=== PATIENT | male | born 1950 | race Caucasian/White ===

== ENCOUNTER 2017-02-23 11:00 | Inpatient (IN) | payer MEDICARE ==
[~2017-02-23] VITALS: Ht 175.3 cm; Wt 106.6 kg
--- NOTE | 2017-02-23 11:36 | NUR ---
RADIOLOGY AT BEDSIDE FOR R FOOT XRAY.
--- NOTE | 2017-02-23 13:01 | NUR ---
DR MORENO PAGED AT [phone] CHAVEZ
--- NOTE | 2017-02-23 13:03 | NUR ---
DR MORENO OR THE ON-CALL WON'T BE AVAILABLE FOR A WEEKI PER SYED,OFFICE STAFF, DR CHAVEZ AWARE
[2017-02-23 13:11] LABS: BASOPHILS # (AUTO) 0.1 /CMM (0.0-0.2); BASOPHILS % (AUTO) 0.5 % (0.0-2.0); EOSINOPHILS # (AUTO) 0.2 /CMM (0.0-0.7); EOSINOPHILS % (AUTO) 1.5 % (0.0-6.0); HEMATOCRIT 44 % (39-51); HEMOGLOBIN 14.8 g/dL (13.5-17.5); LYMPHOCYTES # (AUTO) 1.6 /CMM (0.8-4.8); LYMPHOCYTES % (AUTO) 12.7 % (20.0-44.0); MEAN CORPUSCULAR HEMOGLOBIN 30 PG (26.0-33.0); MEAN CORPUSCULAR HGB CONC 34 g/dl (31.0-36.0); MEAN CORPUSCULAR VOLUME 88 fL (80-96); MONOCYTES # (AUTO) 1.5 /CMM (0.1-1.30); MONOCYTES % (AUTO) 11.6 % (2.0-12.0); NEUTROPHILS # (AUTO) 9.1 /CMM (1.8-8.9); NEUTROPHILS % (AUTO) 73.7 % (43.0-81.0); PLATELET COUNT (AUTO) 268 /CMM (150-450); RDW COEFFICIENT OF VARIATION 14.3 (11.5-15.0); WHITE BLOOD COUNT (AUTO) 12.5 K/uL (4.3-11.0)
[2017-02-23 13:18] LABS: CALCIUM, SERUM 9.5 mg/dL (8.5-10.1); CREATININE 1.5 mg/dL (0.6-1.3)
[2017-02-23] MEDS ORDERED: SIMV80TA5 PO (13:47)
[2017-02-23] MEDS ORDERED: NITR0.4T SL (13:47)
[2017-02-23] MEDS ORDERED: FLUO40CA49 PO (13:47)
[2017-02-23] MEDS ORDERED: CARV25TA2 PO (13:47)
[2017-02-23] MEDS ORDERED: FENO145T20 PO (13:47)
[2017-02-23] MEDS ORDERED: ALPR0.255 PO (13:47)
[2017-02-23] MEDS ORDERED: ALLO300T2 PO (13:47)
[2017-02-23] MEDS ORDERED: ZOLP10TA6 PO (13:47)
[2017-02-23] MEDS ORDERED: BENA40TA2 PO (13:47)
[2017-02-23] MEDS ORDERED: PREG150C PO (13:47)
[2017-02-23] MEDS ORDERED: CELE200C PO (13:47)
[2017-02-23] MEDS ORDERED: LEVO25TA7 PO (13:47)
[2017-02-23] MEDS ORDERED: ISOS120T9 PO (13:47)
[2017-02-23] MEDS ORDERED: INSU300I SQ (13:48)
--- NOTE | 2017-02-23 14:02 | NUR ---
REPORT GIVEN TO SHELLY WHITTEN FOR HARDY MS 320-2
--- NOTE | 2017-02-23 14:23 | NUR ---
MS LUSTER REPAIRER NOTES RECEIVED PT FROM ER IN STABLE CONDITION. PT IS A/O X4. NO SOB OR SIGNS OF DISTRESS NOTED. BREATHING IS EVEN AND UNLABORED. PT. DENIES ANY PAIN AT THIS TIME BUT STATES THAT HIS RIGHT LEG HURTS WHEN HE TRIES TO WALK ON IT. EDEMA NOTED ON RIGHT LEG. PT. WAS ORIENTED TO THE ROOM, BELONGINGS WERE CHECKED AND SIGNED BY DIANDRA. BED IN LOW LOCKED POSITION, SIDE RAILS UP X2, CALL LIGHT WITHIN REACH. WILL AWAIT FOR FURTHER ORDERS FROM THE MD AND BEGIN ADMISSION PROCESS
[2017-02-23] MEDS ORDERED: MORPHINE SULFATE INJ 2 MG/ML DISP.SYRIN IV PRN (14:30)
[2017-02-23] MEDS ORDERED: Z GUARD REMEDY 2 OZ OINT TP PRN (14:30)
[2017-02-23] MEDS ORDERED: DEXTROSE 50%-WATER 50 ML DISP.SYRIN IV PRN (14:30)
[2017-02-23] MEDS ORDERED: MAG HYDROX/AL HYDROX/SIMETH 30 ML UDC PO PRN (14:30)
[2017-02-23] MEDS ORDERED: ZOLPIDEM TARTRATE 10 MG TABLET PO PRN (14:30)
[2017-02-23] MEDS ORDERED: ONDANSETRON HCL/PF 4 MG/2 ML VIAL IVP PRN (14:30)
[2017-02-23] MEDS ORDERED: ENOXAPARIN SODIUM 40 MG/0.4 ML DISP.SYRIN SQ SCH (14:30)
[2017-02-23] MEDS ORDERED: ZOLPIDEM TARTRATE 5 MG TABLET PO PRN (14:30)
[2017-02-23] MEDS ORDERED: ACETAMINOPHEN 325 MG TABLET PO PRN (14:30)
[2017-02-23] MEDS ORDERED: HYDROCODONE/APAP 5/325MG 1 EACH TABLET PO PRN (14:30)
[2017-02-23] MEDS ORDERED: *INSULIN REGULAR(HUMULIN R)HUM 100 UNIT/ML VIAL SQ PRN (14:30)
[2017-02-23] MEDS ORDERED: INSULIN REGULAR, HUMAN 100 UNIT/ML 3 ML VIAL SQ PRN (14:30)
[2017-02-23] MEDS ORDERED: MAGNESIUM HYDROXIDE 30 ML UDC PO PRN (14:30)
[2017-02-23] MEDS ORDERED: ALPRAZOLAM 0.25 MG TABLET PO PRN (14:30)
[2017-02-23] MEDS ORDERED: HYDROCODONE/APAP 10/325MG 1 EA TABLET PO PRN (14:30)
[2017-02-23] MEDS ORDERED: NITROGLYCERIN 0.4 MG/TAB BOTTLE SL PRN (14:30)
[2017-02-23] MEDS: PREGABALIN 25 MG CAPSULE PO SCH ×2 (15:44→17:00)
[2017-02-23] MEDS: CELECOXIB 100 MG CAPSULE PO SCH (15:45)
[2017-02-23 16:00] VITALS: BP 118/56
[2017-02-23 16:50] VITALS: BP 143/77
[2017-02-23] MEDS: BLOOD SUGAR DIAGNOSTIC 1 EACH STRIP VI SCH ×2 (17:20→21:35)
--- NOTE | 2017-02-23 18:51 | NUR ---
MS RN CLOSING NOTES PT REMAINS IN STABLE CONDITION. ALL NEEDS WERE DURING SHIFT AND ORDERS CARRIED OUT ACCORDINGLY. NO CHANGES IN CONDITION SINCE ADMISSION. WILL ENDORSE TO NIGHTSHIFT NURSE FOR HARDY
--- NOTE | 2017-02-23 19:25 | NUR ---
MS RN NOTES RECEIVED PT IN BED, AWAKE, A/O X 4. VERBALLY RESPONSIVE. STABLE AT THIS TIME. NO DISTRESS, NO SOB. IV SITE ON RIGHT HAND INTACT AND PATENT. NO INFILTRATION NOTED. DENIES ANY PAIN OR DISCOMFORT AT THIS TIME. NO S/S OF HYPO/ HYPERGLYCEMIA. ALL NEEDS ATTENDED. BED ON LOWEST LEVEL. CALL LIGHT WITHIN REACH. WILL CONT TO MONITOR.
[2017-02-23 20:00] VITALS: BP_SYST 127; BP_SYST 63; BP_DIAS 63
[2017-02-23] MEDS: CARVEDILOL 12.5 MG TABLET PO SCH (21:42)
[2017-02-23] MEDS ORDERED: SIMVASTATIN 40 MG TABLET PO SCH (22:00)
[2017-02-24] MEDS: BLOOD SUGAR DIAGNOSTIC 1 EACH STRIP VI SCH (06:19)
[2017-02-24 06:45] LABS: BASOPHILS % (AUTO) 0.3 % (0.0-2.0); EOSINOPHILS # (AUTO) 0.3 /CMM (0.0-0.7); EOSINOPHILS % (AUTO) 3.1 % (0.0-6.0); HEMATOCRIT 43 % (39-51); HEMOGLOBIN 14.6 g/dL (13.5-17.5); LYMPHOCYTES # (AUTO) 1.8 /CMM (0.8-4.8); LYMPHOCYTES % (AUTO) 17.2 % (20.0-44.0); MEAN CORPUSCULAR HEMOGLOBIN 30 PG (26.0-33.0); MEAN CORPUSCULAR HGB CONC 34 g/dl (31.0-36.0); MEAN CORPUSCULAR VOLUME 88 fL (80-96); MONOCYTES # (AUTO) 1.8 /CMM (0.1-1.30); MONOCYTES % (AUTO) 16.8 % (2.0-12.0); NEUTROPHILS # (AUTO) 6.6 /CMM (1.8-8.9); NEUTROPHILS % (AUTO) 62.6 % (43.0-81.0); PLATELET COUNT (AUTO) 252 /CMM (150-450); RDW COEFFICIENT OF VARIATION 15.8 (11.5-15.0); RED BLOOD CELL COUNT(AUTO) 4.91 MIL/uL (4.5-6.0); WHITE BLOOD COUNT (AUTO) 10.6 K/uL (4.3-11.0)
--- NOTE | 2017-02-24 06:45 | NUR ---
MS RN NOTES PT IN BED, AWAKE, A/O X 4. VERBALLY RESPONSIVE, STABLE. WATCHING TV AT THIS TIME. NO DISTRESS, NO SOB. IV SITE ON RIGHT HAND INTACT AND PATENT. NO INFILTRATION NOTED. DENIES ANY PAIN OR DISCOMFORT AT THIS TIME. NO S/S OF HYPO/ HYPERGLYCEMIA. PT IS AMBULATORY WITH ASSIST AND WITH CANE. ALL NEEDS ATTENDED. BED ON LOWEST LEVEL. SAFETY PRECAUTIONS OBSERVED. CALL LIGHT WITHIN REACH. WILL CONT ENDORSE TO NEXT SHIFT FOR HARDY.
[2017-02-24 07:02] LABS: CALCIUM, SERUM 9.5 mg/dL (8.5-10.1); CREATININE 1.6 mg/dL (0.6-1.3); PHOSPHORUS 2.7 mg/dL (2.5-4.9); POTASSIUM 4.1 mmol/L (3.5-5.1)
[2017-02-24] MEDS ORDERED: LEVOTHYROXINE SODIUM 25 MCG TABLET PO SCH (07:30)
[2017-02-24] MEDS ORDERED: PANTOPRAZOLE 40 MG TABLET.DR PO SCH (07:30)
--- NOTE | 2017-02-24 07:31 | NUR ---
AM RN NOTE Received patient sleeping comfortably in his bed no acute distress noted. No SOB noted resp even and non-labored. IV site noted pulled out, will re-insert new site. Bed in low locked position. Call light with in reach.
[2017-02-24 08:00] VITALS: BP 127/62
[2017-02-24 08:08] LABS: EOSINOPHILS % (MANUAL) 2 % (0-4); LYMPHOCYTES % (MANUAL) 17 % (16-48); MONOCYTES % (MANUAL) 21 % (0-11.0); NEUTROPHILS % (MANUAL) 60 (42-76)
[2017-02-24] MEDS: CELECOXIB 100 MG CAPSULE PO SCH (08:48)
[2017-02-24] MEDS: CARVEDILOL 12.5 MG TABLET PO SCH (08:50)
--- NOTE | 2017-02-24 08:55 | NUR ---
AM RN NOTE Spoke with Sarai (Pharmacist) to deliver Imdur for patient.
[2017-02-24] MEDS: PREGABALIN 25 MG CAPSULE PO SCH (08:57)
[2017-02-24] MEDS ORDERED: ALLOPURINOL 100 MG TABLET PO SCH (09:00)
[2017-02-24] MEDS ORDERED: FENOFIBRATE NANOCRYS (145 MG) 145 MG TABLET PO SCH (09:00)
[2017-02-24] MEDS ORDERED: BENAZEPRIL HCL 20 MG TABLET PO SCH (09:00)
[2017-02-24] MEDS ORDERED: ISOSORBIDE MONONITRATE 60 MG TAB.SR.24H PO SCH (09:00)
[2017-02-24] MEDS ORDERED: INSULIN DETEMIR 100 UNIT/ML CARTRIDGE SQ SCH (09:00)
[2017-02-24] MEDS ORDERED: FLUOXETINE HCL 20 MG CAPSULE PO SCH (09:00)
[2017-02-24] MEDS ORDERED: ISOSORBIDE MONONITRATE (30MG) 30 MG TAB.SR.24H PO SCH (09:54)
--- NOTE | 2017-02-24 10:30 | NUR ---
AM RN NOTE RN came back from Lab and Charge nurse notified that patient slid from the bed. Pt awake, A/O X4 verbally responsive. Denies any pain or discomfort at this time. Pt stated "I am ok nothing happened to me.". Pt refused RN to check his body. V/S BP124/70 P68 T97.4 P70 R20 O2 sat 96% at RA. Will continue to monitor.
--- NOTE | 2017-02-24 10:40 | NUR ---
AM RN NOTE Patient A/O X4, refused to notify his family regarding incident (Slid from the bed). Dr. Multani made aware with NNO.
[2017-02-24 10:43] VITALS: BP 124/70
--- NOTE | 2017-02-24 11:20 | NUR ---
AM RN NOTE Patient awake, A/O X4 verbally responsive. Friend at bedside. Patient wants to leave AMA (Against medical advice). Charge nurse spoke with patient, both CN and RN explained the risks but patient still insisting to leave AMA. Patient refused to sign AMA form and doesn't want to take any instructions home. Pt evaled by Physical therapist and noted with very unsteady gait. Pt doesn't want to comply with any instructions. Dr. Multani made aware. HL and ID band removed. Patient left in a W/C with all his belongings as accompanied by 1 CLOTH STRETCHER and friend to [facility].
== END 2017-02-24 11:20 | disposition left against medical advice (07) | DRG 551 ==
LOC: ER 11:01 → MED 13:52
PROVIDERS: ADMIT Internal Medicine; ATTEND Internal Medicine
DX: M48.00 Spinal stenosis, site unspecified (principal); N17.0 Acute kidney failure with tubular necrosis; I10 Essential (primary) hypertension; M79.671 Pain in right foot; S90.31XA Contusion of right foot, initial encounter; Y92.009 Unspecified place in unspecified non-institutional (private) residence as the place of occurrence of the external cause; Y93.9 Activity, unspecified; W19.XXXA Unspecified fall, initial encounter; F32.9 Major depressive disorder, single episode, unspecified; E03.9 Hypothyroidism, unspecified; E11.9 Type 2 diabetes mellitus without complications; E66.9 Obesity, unspecified; E78.5 Hyperlipidemia, unspecified; F41.9 Anxiety disorder, unspecified; I25.10 Atherosclerotic heart disease of native coronary artery without angina pectoris; M10.9 Gout, unspecified; Z95.1 Presence of aortocoronary bypass graft; Z68.34 Body mass index [BMI] 34.0-34.9, adult
CPT/HCPCS: 36415; 73630-TC; 80048-TC; 82962-TC; 83735-TC; 84100-TC; 85025-TC; 87081-TC; J1650; J1815; Z7610

== ENCOUNTER 2017-03-09 01:39 | Inpatient (IN) | payer MEDICARE ==
[~2017-03-09] VITALS: Ht 175.3 cm; Wt 103.4 kg
[~2017-03-09 01:39] MED LIST: ALLO300T2 PO; ALPR0.255 PO; BENA40TA2 PO; CARV25TA2 PO; CELE200C PO; FENO145T20 PO; FLUO40CA49 PO; INSU300I SQ; ISOS120T9 PO; LEVO25TA7 PO; NITR0.4T SL; PREG150C PO; SIMV80TA5 PO; ZOLP10TA6 PO
[2017-03-09] MEDS ORDERED: LIDOCAINE 2% JEL UROJET 10 ML MM ONE (02:37)
[2017-03-09 03:06] LABS: APPEARANCE,URINE CLEAR (CLEAR); BILIRUBIN,URINE NEGATIVE (NEGATIVE); BLOOD, URINE NEGATIVE Ery/uL (NEGATIVE); COLOR,URINE YELLOW (YELLOW); KETONES,URINE NEGATIVE (NEGATIVE); LEUKOCYTE ESTERASE ,URINE NEGATIVE (NEGATIVE); NITRITE, URINE NEGATIVE (NEGATIVE); PH,URINE 6.5 (5.0-8.0); PROTEIN,URINE TRACE mg/dl (NEGATIVE); UGLUCOSE NEGATIVE (NEGATIVE)
[2017-03-09 03:07] LABS: ALBUMIN 2.8 g/dL (3.4-5.0); BILIRUBIN,DIRECT 0.1 mg/dL (0.0-0.2); BILIRUBIN,TOTAL 0.6 mg/dL (0.2-1.0); CALCIUM, SERUM 9.5 mg/dL (8.5-10.1); CREATININE 1.3 mg/dL (0.6-1.3); POTASSIUM 4.2 mmol/L (3.5-5.1); TOTAL PROTEIN, SERUM 7.7 g/dL (6.4-8.2); TROPONIN I 0.299 ng/mL (0.00-0.056)
[2017-03-09] MEDS ORDERED: IOHEXOL-300 100 ML VIAL IV ONE (03:27)
[2017-03-09] MEDS ORDERED: IV NS 0.9% 250 ML IV ONE (03:28)
[2017-03-09] MEDS ORDERED: ONDANSETRON HCL/PF 4 MG/2 ML VIAL ONE (04:30)
[2017-03-09] MEDS ORDERED: MORPHINE SULFATE INJ 4 MG/ML DISP.SYRIN ONE ×2 (04:31→04:34)
--- NOTE | 2017-03-09 05:58 | NUR ---
CALLED RESIDENTIAL DESIGNER FOR TELE BED.
--- NOTE | 2017-03-09 06:03 | NUR ---
PT ASLEEP IN BED W/ RESP EVEN & UNLABORED, EASILY AROUSABLE W/ NAD NOTED. ON CONTINUOUS CARDIAC MONITORING.
[2017-03-09] MEDS ORDERED: ASPIRIN 325 MG TABLET ONE (06:19)
--- NOTE | 2017-03-09 06:22 | NUR ---
REPORT GIVEN TO SHELLY MARQUEZ FOR PT ADMISSION TO TELE RM 112-2. PT TRANSFERRED VIA ALS PROTOCOL TO TELE UNIT.
--- NOTE | 2017-03-09 06:25 | NUR ---
VSS, NAD NOTED. TRANSPORTED TO BED 112-2 WITH RN & EMT.
[2017-03-09] MEDS ORDERED: ASPIRIN 325 MG TABLET PO ONE (06:30)
[2017-03-09 06:39] LABS: BACTERIA,URINE None seen /HPF (None Seen); RBC,URINE NONE SEEN /HPF (0-2); SQUAMOUS EPITHELIAL CELL,UR Few /HPF (None Seen); WBC,URINE 0-2 /HPF (0-3)
[2017-03-09 07:44] LABS: BASOPHILS % (AUTO) 0.1 % (0.0-2.0); EOSINOPHILS # (AUTO) 0.3 /CMM (0.0-0.7); EOSINOPHILS % (AUTO) 2.2 % (0.0-6.0); HEMATOCRIT 34 % (39-51); HEMOGLOBIN 11.3 g/dL (13.5-17.5); LYMPHOCYTES # (AUTO) 1.6 /CMM (0.8-4.8); LYMPHOCYTES % (AUTO) 13.6 % (20.0-44.0); MEAN CORPUSCULAR HEMOGLOBIN 30 PG (26.0-33.0); MEAN CORPUSCULAR HGB CONC 33 g/dl (31.0-36.0); MEAN CORPUSCULAR VOLUME 89 fL (80-96); MONOCYTES # (AUTO) 1.4 /CMM (0.1-1.30); MONOCYTES % (AUTO) 11.6 % (2.0-12.0); NEUTROPHILS # (AUTO) 8.6 /CMM (1.8-8.9); NEUTROPHILS % (AUTO) 72.5 % (43.0-81.0); PLATELET COUNT (AUTO) 497 /CMM (150-450); RDW COEFFICIENT OF VARIATION 13.8 (11.5-15.0); RED BLOOD CELL COUNT(AUTO) 3.82 MIL/uL (4.5-6.0); WHITE BLOOD COUNT (AUTO) 11.9 K/uL (4.3-11.0)
[2017-03-09 08:00] VITALS: BP_SYST 113; BP_SYST 116; BP_DIAS 58; BP_DIAS 71
--- NOTE | 2017-03-09 08:00 | NUR ---
TELE1/RN AM SHIFT INITIAL NOTES RECEIVED PT AWAKE SITTING IN BED, PT A/O X 4, DENIES ANY SYMPTOMS AT THIS TIME. ON 2L O2 VIA N/C SATURATING @ 97%. NO ACUTE CHANGE OF CONDITION NOTED. ON TELE MONITORING WITH SINUS RHYTHM WITH BBB, HR 90. IV SITE FLUSHED, PATENT WITH NO S/S OF INFECTION. PT IS COMFORTABLE AT THIS TIME. SCHEDULED AM MEDS TO BE GIVEN. ADMITTING PROTOCOLS TO BE PROCESSED. CL WITHIN REACHED AND SAFETY MAINTAINED. ON GOING MONITORING. Addendum: 03/09/17 at 1116 by FERNANDA TRUJILLO RN ADDENDUM: PT'S SURGICAL SITE IN LOWER BACK CLEAN, DRY, HEALING WELL
[2017-03-09 08:10] LABS: CALCIUM, SERUM 9.2 mg/dL (8.5-10.1); CREATININE 1.1 mg/dL (0.6-1.3); PHOSPHORUS 3.4 mg/dL (2.5-4.9); POTASSIUM 3.9 mmol/L (3.5-5.1)
[2017-03-09] MEDS ORDERED: MORPHINE SULFATE INJ 2 MG/ML DISP.SYRIN IV PRN (08:30)
[2017-03-09] MEDS ORDERED: ENOXAPARIN SODIUM 40 MG/0.4 ML DISP.SYRIN SQ SCH (09:00)
[2017-03-09] MEDS ORDERED: CELECOXIB 100 MG CAPSULE PO SCH (09:00)
[2017-03-09 09:05] LABS: HEMATOCRIT 36 % (39-51); HEMOGLOBIN 11.8 g/dL (13.5-17.5); MEAN CORPUSCULAR HEMOGLOBIN 29 PG (26.0-33.0); MEAN CORPUSCULAR HGB CONC 33 g/dl (31.0-36.0); MEAN CORPUSCULAR VOLUME 89 fL (80-96); RDW COEFFICIENT OF VARIATION 13.9 (11.5-15.0); RED BLOOD CELL COUNT(AUTO) 4.02 MIL/uL (4.5-6.0); WHITE BLOOD COUNT (AUTO) 11.6 K/uL (4.3-11.0)
[2017-03-09 09:06] LABS: BASOPHILS % (AUTO) 0.5 % (0.0-2.0); EOSINOPHILS % (AUTO) 3.4 % (0.0-6.0); LYMPHOCYTES % (AUTO) 13.6 % (20.0-44.0); MONOCYTES % (AUTO) 11.3 % (2.0-12.0); NEUTROPHILS % (AUTO) 71.2 % (43.0-81.0); PLATELET COUNT (AUTO) 500 /CMM (150-450)
[2017-03-09] MEDS ORDERED: ASPI81TA2 PO (09:22)
[2017-03-09] MEDS ORDERED: HYDR-552 PO (09:22)
[2017-03-09] MEDS ORDERED: BLOO-668 IN (09:22)
[2017-03-09 09:26] LABS: INR 1.14 (0.87-1.13); PROTHROMBIN TIME 12.3 SECS (9.5-12.7)
[2017-03-09] MEDS: ASPIRIN 81 MG TAB.CHEW PO SCH (09:52)
--- NOTE | 2017-03-09 11:16 | NUR ---
TELE1/RN ROUNDS - DR. CHOE UPDATED PT'S CONDITION. PT SEEN & EXAMINED BY DR. CHOE. NO NEW ORDERS RECEIVED AT THIS TIME. Addendum: 03/09/17 at 1118 by FERNANDA TRUJILLO RN ADDENDUM: DR. CHOE HAS SPOKEN TO DR. VASQUEZ (WHO PERFORMED LOWER BACK).
[2017-03-09 12:00] VITALS: BP_SYST 147; BP_SYST 85; BP_DIAS 53; BP_DIAS 79
--- NOTE | 2017-03-09 13:21 | NUR ---
TEXTED DR. PAREDES FOR MRI APPROVAL.
--- NOTE | 2017-03-09 14:00 | NUR ---
PT REFUSED 1400 EKG.
--- NOTE | 2017-03-09 15:00 | NUR ---
TELE1/RN POSTPONE PER PT WANT TO PERFORM MRI TOMORROW INSTEAD.
[2017-03-09 16:00] VITALS: BP 125/79
[2017-03-09] MEDS ORDERED: NITROGLYCERIN 0.4 MG/TAB BOTTLE SL PRN (18:00)
[2017-03-09] MEDS ORDERED: ALPRAZOLAM 0.25 MG TABLET PO PRN (18:00)
--- NOTE | 2017-03-09 18:00 | NUR ---
TELE1/RN AFTERNOON ROUNDS NO CHANGE OF CONDITION. MONITORING.
[2017-03-09] MEDS: MORPHINE SULFATE INJ 2 MG/ML DISP.SYRIN IV PRN (18:40)
[2017-03-09] MEDS ORDERED: MAGNESIUM HYDROXIDE 30 ML UDC PO PRN (19:00)
--- NOTE | 2017-03-09 19:30 | NUR ---
INVENTORY AUDITOR INITIAL NOTES RECEIVED PATIENT AWAKE A/OX3 ABLE TO MAKE NEEDS KNOWN. PATIENT DENIES PAIN OR DISCOMFORT. RESPIRATIONS EVEN AND UNLABORED ON ROOM AIR. ON TELE MONITOR SR 91. SKIN WARM AND DRY TO TOUCH. WITH F/C IN PLACE, PATENT AND INTACT, DRAINING BY GRAVITY. NOTED SURGERY SITE ON BACK, CLEAN AND DRY, OPEN TO AIR. NO DRAINAGE NOTED. HOB ELEVATED. WITH BILATERAL DVT PUMPS IN PLACE, PATIENT REQUESTED TO HAVE RIGHT SIDE REMOVED, CAUSING HIM PAIN. SIDE RAILS UP AND LOCKED. BED KEPT AT LOWEST POSITION. CALL LIGHT KEPT WITHIN EASY REACH. WILL CONTINUE TO MONITOR.
--- NOTE | 2017-03-09 19:32 | NUR ---
TELE1/RN AM SHIFT END NOTES NO CHANGE OF CONDITION NOTED DURING THE SHIFT, ALL NEEDS MET. PT ENDORSED TO PM NURSE TO CONTINUE CARE. CL WITHIN REACHED AND SAFETY MAINTAINED.
[2017-03-09 20:00] VITALS: BP_SYST 125; BP_SYST 135; BP_DIAS 76; BP_DIAS 79
[2017-03-09] MEDS: ATORVASTATIN 40 MG TABLET PO SCH (21:26)
[2017-03-09] MEDS: PREGABALIN 25 MG CAPSULE PO SCH (21:27)
[2017-03-09] MEDS: CARVEDILOL 12.5 MG TABLET PO SCH (21:27)
[2017-03-09] MEDS ORDERED: CARVEDILOL 12.5 MG TABLET PO SCH (22:00)
[2017-03-09] MEDS ORDERED: SIMVASTATIN 40 MG TABLET PO SCH (22:00)
[2017-03-10] VITALS (9 sets, daily range): BP systolic 80–157; BP diastolic 47–78
--- NOTE | 2017-03-10 07:00 | NUR ---
RN NOTES RECEIVED PATIENT ON BED , A/Ox4, RESPIRATION EVEN AND UNLABORED , NO SOB NOTED SR ON TELE, F/C IN PLACE, PATENT AND INTACT, DRAINING TO GRAVITY. SURGICAL SITE TO BACK CDI, EXPERIMENTAL TECHNICIAN, HOB ELEVATED. SIDE RAILS UPx3, CALL LIGHT WITHIN EASY REACH , BED LOCKED AND IN LOWEST POSITION. WILL CONTINUE TO MONITOR PT CLOSELY AND NOTIFY MD FOR ANY SINGICANT CHANGES .
--- NOTE | 2017-03-10 07:09 | NUR ---
HEDDLE MACHINE OPERATOR CLOSING NOTES NO SIGNIFICANT CHANGES OVERNIGHT. PAIN MANAGED NEEDED. DENIES SOB, ON RA. SKIN WARM AND DRY TO TOUCH. SR ON TELE. F/C PATENT AND INTACT, DRAINING BY GRAVITY. KEPT CLEAN AND DRY. HOB ELEVATED. SIDE RAILS UP AND LOCKED. BED KEPT AT LOWEST POSITION. CALL LIGHT KEPT WITHIN EASY REACH. CONTINUITY OF CARE ENDORSED TO AM NURSE.
--- NOTE | 2017-03-10 07:25 | NUR ---
SISAL PICKER NOTES SPOKE WITH ENGLISH AS A SECOND LANGUAGE INSTRUCTOR SAHIL, PER SAHIL HE WILL SEND SOMEONE OVER TO DO MRI. OK FOR PATIENT TO EAT. AM NURSE MADE AWARE.
[2017-03-10] MEDS: LEVOTHYROXINE SODIUM 25 MCG TABLET PO SCH (08:36)
[2017-03-10] MEDS: CARVEDILOL 12.5 MG TABLET PO SCH ×2 (08:38→21:17)
[2017-03-10] MEDS: ASPIRIN 81 MG TAB.CHEW PO SCH (08:38)
[2017-03-10] MEDS: FLUOXETINE HCL 20 MG CAPSULE PO SCH (08:43)
[2017-03-10] MEDS: FENOFIBRATE NANOCRYS (145 MG) 145 MG TABLET PO SCH (08:43)
[2017-03-10] MEDS: CELECOXIB 100 MG CAPSULE PO SCH (08:43)
[2017-03-10] MEDS: BENAZEPRIL HCL 20 MG TABLET PO SCH (08:44)
[2017-03-10] MEDS: ALLOPURINOL 100 MG TABLET PO SCH (08:48)
[2017-03-10] MEDS: ISOSORBIDE MONONITRATE (30MG) 30 MG TAB.SR.24H PO SCH (08:48)
[2017-03-10] MEDS ORDERED: ASPIRIN 81 MG TAB.CHEW PO SCH (09:00)
[2017-03-10] MEDS ORDERED: TOUJEO SQ SCH (09:00)
--- NOTE | 2017-03-10 10:39 | NUR ---
RN NOTES REPORT GIVEN TO SAI FOR CONTINUITY OF CARE .
[2017-03-10] MEDS: PREGABALIN 25 MG CAPSULE PO SCH ×3 (10:40→17:00)
--- NOTE | 2017-03-10 10:40 | NUR ---
LYrica non administered, patient is at the rad. dept. for MRI
--- NOTE | 2017-03-10 10:40 | NUR ---
Received report from Maurice/SHELLY for continuity of care. Patient is at the Rad. dept for MRI.
[2017-03-10] MEDS: MORPHINE SULFATE INJ 2 MG/ML DISP.SYRIN IV PRN (11:45)
--- NOTE | 2017-03-10 11:59 | NUR ---
Received call from Dr. Collazo, ordered Stat EKG, CBC, BMP, ESR, CRP stat and NPO now per Dr. Penn. Patient to have surgery today. Dr. Penn will speak to the patient per Dr. Collazo.
[2017-03-10] MEDS ORDERED: GADOVERSETAMIDE 5 MMOL/10 ML VIAL ONE (12:26)
[2017-03-10 12:32] LABS: BASOPHILS # (AUTO) 0.1 /CMM (0.0-0.2); BASOPHILS % (AUTO) 0.7 % (0.0-2.0); EOSINOPHILS # (AUTO) 0.3 /CMM (0.0-0.7); EOSINOPHILS % (AUTO) 2.3 % (0.0-6.0); HEMATOCRIT 34 % (39-51); HEMOGLOBIN 11.3 g/dL (13.5-17.5); LYMPHOCYTES # (AUTO) 1.3 /CMM (0.8-4.8); LYMPHOCYTES % (AUTO) 10.8 % (20.0-44.0); MEAN CORPUSCULAR HEMOGLOBIN 30 PG (26.0-33.0); MEAN CORPUSCULAR HGB CONC 33 g/dl (31.0-36.0); MEAN CORPUSCULAR VOLUME 88 fL (80-96); MONOCYTES # (AUTO) 1.2 /CMM (0.1-1.30); NEUTROPHILS # (AUTO) 9.2 /CMM (1.8-8.9); NEUTROPHILS % (AUTO) 76.2 % (43.0-81.0); PLATELET COUNT (AUTO) 523 /CMM (150-450); RDW COEFFICIENT OF VARIATION 14.1 (11.5-15.0); RED BLOOD CELL COUNT(AUTO) 3.82 MIL/uL (4.5-6.0)
[2017-03-10 12:45] LABS: C-REACTIVE PROTEIN 4.4 mg/dL (0.0-0.9)
[2017-03-10 12:47] LABS: CALCIUM, SERUM 8.8 mg/dL (8.5-10.1); CREATININE 1.7 mg/dL (0.6-1.3); POTASSIUM 4.5 mmol/L (3.5-5.1)
--- NOTE | 2017-03-10 12:58 | NUR ---
Report given to Toby/SHELLY for continuity of care.
--- NOTE | 2017-03-10 12:59 | NUR ---
RN NOTES RECEIVED PT ON BED, STABLE , CONTINUE TO MONITOR.
--- NOTE | 2017-03-10 16:00 | NUR ---
RN NOTES BP=80/47 HR=87 , PT ZORAN ANY S/S OF HYPOTENSION , DR CHOE NOTIFIED , CONTINUE TO MONITOR PT .
--- NOTE | 2017-03-10 16:10 | NUR ---
RN NOTES REPORT GIVEN TO MONICA BRVAO AT [facility] .
--- NOTE | 2017-03-10 16:15 | NUR ---
RN NOTES ORDER RECEIVED FOR 2 L NS BOLUS PER DR CHOE ORDER . PT A/Ox3, NO DISTRES NOTED, ELEVATED BLE , HOB DOWN , CONTINUE TO MONITOR BP .
[2017-03-10] MEDS ORDERED: IV NS 0.9% 1,000 ML BAG IV PRN (16:30)
[2017-03-10] MEDS ORDERED: GLYCERIN ADULT 1 SUPP.RECT RC PRN (16:30)
--- NOTE | 2017-03-10 16:55 | NUR ---
RN NOTES 1000CC NS BOLUS GIVEN HM=467/66 HR =81, PT STABLE , NO DISTRESS NOTED, LIZET BRAVO AT [facility] NOTIFIED , EMT PERSONAL ON THE FLOOR TO TRANSFER PT TO [facility]
--- NOTE | 2017-03-10 17:00 | NUR ---
RN NOTES PT LEFT THE FLOOR TO [facility] IN STABLE CONDITION , ACCOMPANIED BY EMT PERSONAL ,
--- NOTE | 2017-03-10 17:40 | NUR ---
RN NOTES PT BACK TO ROOM 112-2 PER CASE MANAGEMENT , SA=794/62 HR =79 , T=98.6 , NO DISTRESS NOTED .
--- NOTE | 2017-03-10 18:24 | NUR ---
RN NOTES PT STABLE , ZORAN ANY DISTRESS , VSS STABLE ,WILL BE TRANSFER BACK TO [facility] IN AM PER CASE MANAGEMENT.
--- NOTE | 2017-03-10 19:00 | NUR ---
RN NOTES DR CHOE TALKED TO PT ON THE PHONE PT REFUSED TO GO TO [facility].
--- NOTE | 2017-03-10 19:15 | NUR ---
RN NOTES DR CHOE ON THE PHONE TALKING TO THE PT REGARDING TRANSFERRING TO [facility] , PT STATED WANTS TO TALK TO SURGEON AT [facility] BEFORE LEAVE [facility] .
--- NOTE | 2017-03-10 19:20 | NUR ---
RN NOTES DR DAIJA EWING TO PT ON THE PHONE AGAIN , PT STILL REFUSING TO GO TO [facility] ,
--- NOTE | 2017-03-10 19:30 | NUR ---
RN NOTES RECEIVED PT. AWAKE ON BED, A/OX3, PT STATED THAT HE JUST SPOKE TO DR. CHOE AND TOLD ME THAT HE'S NOT GOING TO [place] OR ANYWHERE TONIGHT OR EVEN TOMORROW, DENIES PAIN, SR ON TELE MONITOR HR-72, CALL LIGHT WITHIN REACH, SIDERAILS UPX2 CONTINUE TO MONITOR
--- NOTE | 2017-03-10 20:07 | NUR ---
RN NOTES UNDERWEAR HEMMER NERY CALLED AND INFORMED ME THAT DR. VASQUEZ, SURGEON FROM [facility] WILL CALL THE HOSPITAL AND WILL TALK TO THE PATIENT
--- NOTE | 2017-03-10 20:20 | NUR ---
RN NOTES DR. MENDIETA CAME AND TALKED TO THE PT AND WANTS THE PT. TO LEAVE [facility] BUT THERE'S NO AVAILABLLE BED IN [place]. HE DOESN'T EVEN KNOW WHICH FLOOR THE PT. IS GOING.. WILL CALL THE BLENDER / COOK
--- NOTE | 2017-03-10 20:30 | NUR ---
RN NOTES DAIRY BACTERIOLOGIST CHULA GABRIEL AND TALKED TO DR. MENDIETA THAT WE CAN'T TRANSFER THE PT. UNLESS WE HAVE BED AVAILABLE IN [facility]
--- NOTE | 2017-03-10 20:44 | NUR ---
RN NOTES DR. MENDIETA CAME AND GAVE AN ORDER TO PUT PT. ON NPO EXCEPT MEDS, ORDER NOTED AND CARRIED OUT
--- NOTE | 2017-03-10 21:00 | NUR ---
RN NOTES DR. MENDIETA TALKED TOT HE PT AGAIN AND INFORMED HIM THAT HE'S GOING TO BE TRANSFER TOMORROW MORNING INSTEAD TONIGHT
--- NOTE | 2017-03-10 21:10 | NUR ---
RN NOTES NERY SPRING TACKER ARRANGE EVERYTHING , AMBULANCE ( MED RESPONSE ) WAS CALLED [facility] FOR BED AVAILABILITY.
[2017-03-10] MEDS: ATORVASTATIN 40 MG TABLET PO SCH (21:17)
--- NOTE | 2017-03-10 21:30 | NUR ---
RN NOTES PT. REFUSED HIS IV LINE , EVEN EXPLAINED THAT HE'S GOING TO ANOTHER HOSPITAL IN THE MORNING
--- NOTE | 2017-03-10 21:37 | NUR ---
RN NOTES CALLED DR. BURGESS AND GOT AN ORDER FOR IV FLUID OF D5NS @ 75ML/HR, ORDER NOTED AND CARRIED OUT
[2017-03-10] MEDS ORDERED: IV D5/ 0.9% NACL 1,000 ML IV SCH (22:00)
[2017-03-11] VITALS: BP 112/41
[2017-03-11 00:01] VITALS: BP 112/41
[2017-03-11 04:00] VITALS: BP_SYST 121; BP_DIAS 60; BP_DIAS 62
--- NOTE | 2017-03-11 06:10 | NUR ---
RN NOTES PT IV LINE GOT INFILTRATED, CHARGE NURSE INSERTED A NEW LINE GAUGE 22
--- NOTE | 2017-03-11 06:20 | NUR ---
RN NOTES PT. REFUSED TO PUT BACK HER IV FLUID, REFUSED ACCU-CHECK, REFUSED DRESSING ON HIS SURGICAL SITE. PT STATED "IT'S NOT NECESSARY"
--- NOTE | 2017-03-11 06:45 | NUR ---
RN NOTES CALLED [facility] AND GAVE REPORT TO SHELLY GARCIA
--- NOTE | 2017-03-11 06:46 | NUR ---
RN NOTES PT IS AWAKE, DENIES PAIN, STILL REFUSING FOR DRESSING CHANGE, REFUSED MORNING CARE, PT STATED " HE'S GOING TO BE TRANSFER TO ANOTHER HOSPITAL ANYWAY, CALL LIGHT WITHIN REACH, SIDERAILS UPX2 PT. NEEDS ATTENDED
[2017-03-11] MEDS: MORPHINE SULFATE INJ 2 MG/ML DISP.SYRIN IV PRN (07:12)
--- NOTE | 2017-03-11 07:15 | NUR ---
RN NOTES COMPLAINED OF BACK SURGICAL SITE- MORPHINE 2MG IV GIVEN ORDERED, V/S STABLE
[2017-03-11] MEDS: LEVOTHYROXINE SODIUM 25 MCG TABLET PO SCH (07:30)
--- NOTE | 2017-03-11 07:51 | NUR ---
SENIOR MAINTENANCE TECHNICIAN INITIAL NOTES RECEIVED PATIENT AWAKE A/OX3 ABLE TO MAKE NEEDS KNOWN. PATIENT DENIES PAIN OR DISCOMFORT AT THIS TIME PAINT RECENTLY RECEVIED PAIN MEDICATION VIA PM RN . RESPIRATIONS EVEN AND UNLABORED ON ROOM AIR. ON TELE MONITOR SR 98. SKIN WARM AND DRY TO TOUCH. WITH F/C IN PLACE, PATENT AND INTACT, DRAINING BY GRAVITY. NOTED SURGERY SITE ON BACK, CLEAN AND DRY, OPEN TO AIR. NO DRAINAGE NOTED. HOB ELEVATED. SIDE RAILS UP AND LOCKED. BED KEPT AT LOWEST POSITION. CALL LIGHT KEPT WITHIN EASY REACH. RN WILL CONTINUE TO MONITOR. PATIENT SCHEDULED COMPOUND MIXER THIS AM CHARGE NURSE SOON CALLED AND SCHEDULED
--- NOTE | 2017-03-11 08:00 | NUR ---
RN NOTE PATIENT INQUIRING ABOUT EMS ARRIVAL STATES HE THOUGHT THE WOULD BE HERE AT 0730 HOWEVER THEY ARE STILL NOT HERE, RN INFORMS THE PATIENT THAT EMS WAS CANCELLED AND RESCHEDULED AND SHOULD ARRIVE WITHIN A HR . PATIENT ACKNOWLEDGE AND ALSO VERBALIZED HE WAS NOT HAPPY ABOUT THIS INCIDENT . RN WILL CONTINUE TO FOLLOW
[2017-03-11] MEDS: ASPIRIN 81 MG TAB.CHEW PO SCH (09:00)
[2017-03-11] MEDS: PREGABALIN 25 MG CAPSULE PO SCH (09:00)
--- NOTE | 2017-03-11 09:15 | NUR ---
EMS ARRIVED PATIENT BEGAN TO YELL AND SCREAM STATING THAT THEY WERE EXTREMELY LATE AND HE NO LONGER WANTED TO GO WITH THEM. HE ALSO STATED THAT NURSING STAFF COULD CALL AND REORDER EMS AT 1000 AM MAY THEN HE WILL BE READY CHARGE NURSE SOON EXPLAINED THE IMPORTANCE OF THE SURGERY AND THE NEED FOR THE PATIENT TO BE TRANSFERRED PATIENT ACKNOWLEDGE AND STATED HE DIDN'T WANT THE KOFFI FROM EMS TO TAKE HIM ANYWHERE. DAIJA WALLACE NOTIFIED PATIENT TRANSFERRED TO THE EMS [facility] WITHOUT ISSUE. PATIENT STILL REQUESTING TO STAY AND NOT GO WITH EMS . AND STATES HE DOESN'T WANT ANY SURGERY OR TO BE TRANSFERRED. PATIENTS WISHES ACKNOWLEDGED PATIENT TRANSFERRED BACK TO BED NO ISSUE . PATIENT REFUSED TELE MONITORING AND ALL AM MEDICATIONS RN WILL CONTINUE TO FOLLOW
[2017-03-11] MEDS: CARVEDILOL 12.5 MG TABLET PO SCH (10:06)
[2017-03-11] MEDS: ISOSORBIDE MONONITRATE (30MG) 30 MG TAB.SR.24H PO SCH (10:06)
[2017-03-11] MEDS: BENAZEPRIL HCL 20 MG TABLET PO SCH (10:06)
[2017-03-11] MEDS: CELECOXIB 100 MG CAPSULE PO SCH (10:06)
[2017-03-11] MEDS: FENOFIBRATE NANOCRYS (145 MG) 145 MG TABLET PO SCH (10:07)
[2017-03-11] MEDS: FLUOXETINE HCL 20 MG CAPSULE PO SCH (10:07)
[2017-03-11] MEDS: ALLOPURINOL 100 MG TABLET PO SCH (10:07)
--- NOTE | 2017-03-11 11:25 | NUR ---
Rn note patient discharged without issue patient stable and transported to [facility] via charge nurse and staff with assistance from ems . no sob or complaint per patient
== END 2017-03-11 10:55 | disposition short-term general hospital (02) | DRG 919 ==
LOC: ER 01:42 → TELE1 06:27 → MEDSG1 03-11 10:28
PROVIDERS: ADMIT Internal Medicine; ATTEND Internal Medicine
DX: G97.61 Postprocedural hematoma of a nervous system organ or structure following a nervous system procedure (principal); I21.4 Non-ST elevation (NSTEMI) myocardial infarction; I95.9 Hypotension, unspecified; I11.9 Hypertensive heart disease without heart failure; G95.19 Other vascular myelopathies; S30.0XXA Contusion of lower back and pelvis, initial encounter; R32 Unspecified urinary incontinence; E11.9 Type 2 diabetes mellitus without complications; E66.9 Obesity, unspecified; E78.5 Hyperlipidemia, unspecified; I25.10 Atherosclerotic heart disease of native coronary artery without angina pectoris; Z87.891 Personal history of nicotine dependence; Z95.1 Presence of aortocoronary bypass graft; Z79.4 Long term (current) use of insulin; R15.9 Full incontinence of feces; M54.9 Dorsalgia, unspecified; R60.9 Edema, unspecified; N99.89 Other postprocedural complications and disorders of genitourinary system; Y83.8 Other surgical procedures as the cause of abnormal reaction of the patient, or of later complication, without mention of misadventure at the time of the procedure; Y82.8 Other medical devices associated with adverse incidents; Y92.009 Unspecified place in unspecified non-institutional (private) residence as the place of occurrence of the external cause; X58.XXXA Exposure to other specified factors, initial encounter; Z68.33 Body mass index [BMI] 33.0-33.9, adult
CPT/HCPCS: 36415; 71010-TC; 72132-TC; 72158-TC; 80048-TC; 80061-TC; 80076-TC; 81000-TC; 83605-TC; 83735-TC; 84100-TC; 84484-TC; 85025-TC; 85652-TC; 85730-TC; 86140-TC; 87040-TC; 87081-TC; 87086-TC; 93307-TC; A4606; A9579; J1650; J2270; J2405; J3490; J7030; J7042; J7050; Q9967; Z7610

== ENCOUNTER 2023-09-02 23:32 | Inpatient (IN) | payer MEDICARE ==
[~2023-09-02] VITALS: Ht 177.8 cm; Wt 94.8 kg
[~2023-09-02 23:32] MED LIST changes: +ASPI-1169 PO; -BENA40TA2 PO; +BENA40TA8 PO; +BLOO-668 IN; -FENO145T20 PO; +FENO145T21 PO; +HYDR-4384 PO; +ISOS120T13 PO; -ISOS120T9 PO; -SIMV80TA5 PO; +SIMV80TA90 PO
[2023-09-03 00:11] LABS: BASOPHILS # (AUTO) 0.1 K/uL (0.0-0.2); EOSINOPHILS # (AUTO) 0.4 K/uL (0.0-0.7); EOSINOPHILS % (AUTO) 4.9 % (0.0-6.0); HEMATOCRIT 44 % (39-51); HEMOGLOBIN 14.6 g/dL (13.5-17.5); LYMPHOCYTES # (AUTO) 1.5 K/uL (0.8-4.8); MEAN CORPUSCULAR HEMOGLOBIN 31 PG (26.0-33.0); MEAN CORPUSCULAR HGB CONC 34 g/dl (31.0-36.0); MEAN CORPUSCULAR VOLUME 92 fL (80-96); MONOCYTES # (AUTO) 0.8 K/uL (0.1-1.30); NEUTROPHILS % (AUTO) 65.1 % (43.0-81.0); PLATELET COUNT (AUTO) 249 K/uL (150-450); RED BLOOD CELL COUNT(AUTO) 4.75 MIL/uL (4.5-6.0); RED CELL DISTRIBUTION WIDTH 14.6 % (11.5-15.0); WHITE BLOOD COUNT (AUTO) 7.7 K/uL (4.3-11.0)
[2023-09-03 00:29] LABS: CALCIUM, SERUM 10.1 mg/dL (8.5-10.1); CARBON DIOXIDE 24 mmol/L (21-32); CHLORIDE 101 mmol/L (98-107); CREATININE 1.8 mg/dL (0.6-1.3); GLUCOSE 163 mg/dL (74-106); POTASSIUM 4.2 mmol/L (3.5-5.1); SODIUM SERUM 137 mmol/L (136-145); UREA NITROGEN, BLOOD 25 mg/dL (7-18)
[2023-09-03 00:31] LABS: SERUM AMMONIA 2 umol/L (11-32)
[2023-09-03 00:41] LABS: LACTIC ACID 3.8 mmol/L (0.4-2.0)
[2023-09-03 00:43] LABS: ALANINE AMINOTRANSFERASE 45 U/L (12-78); ALBUMIN 3.5 g/dL (3.4-5.0); ALCOHOL, BLOOD < 3 mg/dL (0-10); ALKALINE PHOSPHATASE 71 U/L (46-116); ASPARTATE AMINOTRANSFERASE 24 U/L (15-37); BILIRUBIN,TOTAL 0.6 mg/dL (0.2-1.0); NT-PRO BNP 213 pg/mL (0-125); TOTAL PROTEIN, SERUM 8.1 g/dL (6.4-8.2)
[2023-09-03] MEDS: IV NS 0.9% 1,000 ML IV ONE ×3 (00:56→01:40)
[2023-09-03 01:01] LABS: ACETAMINOPHEN <10 ug/ml (10-30); SALICYLATE 0.7 mg/dL (2.8-20.0)
[2023-09-03] MEDS ORDERED: VANCOMYCIN 1 GM /D5W 250 ML PB IV ONE (01:26)
[2023-09-03] MEDS ORDERED: diphenhydrAMINE HCL 50 MG/ML VIAL ONE ×2 (01:29→04:40)
[2023-09-03] MEDS ORDERED: LORAZEPAM INJ 2 MG/ML VIAL ONE ×2 (01:29→04:40)
[2023-09-03] MEDS ORDERED: VANCOMYCIN HCL 1.25 GM in IV D5W 260 ML IV ONE (01:30)
[2023-09-03] MEDS: LORAZEPAM INJ 2 MG/ML VIAL IV ONE (01:30)
[2023-09-03] MEDS: diphenhydrAMINE HCL 50 MG/ML VIAL IV ONE (01:40)
[2023-09-03] MEDS: VANCOMYCIN HCL 1 GM in IV D5W 260 ML IV ONE (01:41)
[2023-09-03 03:03] LABS: BILIRUBIN,DIRECT 0.1 mg/dL (0.0-0.2)
[2023-09-03 03:18] LABS: LACTIC ACID REFLEX 1.4 mmol/L (0.4-1.9)
[2023-09-03] MEDS ORDERED: TDAP [DIPH/PERTUSSIS/TET] 0.5 ML VIAL IM ONE ×2 (04:33→04:41)
[2023-09-03] MEDS: TDAP [DIPH/PERTUSSIS/TET] 0.5 ML VIAL IM ONE (04:41)
[2023-09-03] MEDS: LORAZEPAM INJ 2 MG/ML VIAL IM ONE (04:46)
[2023-09-03] MEDS: diphenhydrAMINE HCL 50 MG/ML VIAL IM ONE (04:46)
[2023-09-03 05:26] LABS: APPEARANCE,URINE CLEAR (CLEAR); BILIRUBIN,URINE NEGATIVE (NEGATIVE); BLOOD, URINE NEGATIVE Ery/uL (NEGATIVE); COLOR,URINE YELLOW (YELLOW); KETONES,URINE NEGATIVE (NEGATIVE); LEUKOCYTE ESTERASE ,URINE NEGATIVE (NEGATIVE); NITRITE, URINE NEGATIVE (NEGATIVE); PROTEIN,URINE NEGATIVE (NEGATIVE); UGLUCOSE NEGATIVE (NEGATIVE); UROBILINOGEN,URINE 0.2 EU/dL (0.2)
[2023-09-03 06:00] LABS: AMPHETAMINE, URINE NEGATIVE (NEGATIVE); BARBITURATE, URINE NEGATIVE (NEGATIVE); BENZODIAZEPINE, URINE NEGATIVE (NEGATIVE); COCCAINE, URINE NEGATIVE (NEGATIVE); OPIATE, URINE NEGATIVE (NEGATIVE); PHENCYCLIDINE SCREEN,URINE NEGATIVE (NEGATIVE)
[2023-09-03 06:01] LABS: CANNABINOID, URINE POSITIVE (NEGATIVE)
[2023-09-03 08:00] VITALS: O2SAT 98
[2023-09-03] MEDS ORDERED: OLANZAPINE 10 MG VIAL IM ONE (09:41)
[2023-09-03] MEDS: OLANZAPINE 10 MG VIAL IM ONE ×2 (09:54→22:36)
[2023-09-03] MEDS ORDERED: MAG HYDROX/AL HYDROX/SIMETH 30 ML UDC PO PRN (10:30)
[2023-09-03] MEDS ORDERED: KETO120S5 TP (10:52)
[2023-09-03] MEDS ORDERED: KERENDIA PO (10:52)
[2023-09-03] MEDS ORDERED: FLUO20CA42 PO (10:52)
[2023-09-03] MEDS ORDERED: LINA72CA PO (10:52)
[2023-09-03] MEDS ORDERED: PRAV80TA21 PO (10:52)
[2023-09-03] MEDS ORDERED: TADA5TAB2 PO (10:52)
[2023-09-03 11:07] VITALS: BP 154/78; TEMP 98.7; O2SAT 96
[2023-09-03] MEDS: BLOOD SUGAR DIAGNOSTIC 1 EACH STRIP IN ONE (11:31)
[2023-09-03] MEDS: LORAZEPAM 0.5 MG TABLET PO PRN (12:10)
[2023-09-03] MEDS ORDERED: NITROGLYCERIN 0.4 MG/TAB BOTTLE SL PRN (14:00)
[2023-09-03] MEDS ORDERED: DEXTROSE 50%-WATER 50 ML DISP.SYRIN IV PRN (14:00)
[2023-09-03] MEDS: LEVOFLOXACIN (250MG) 250 MG TABLET PO SCH ×2 (14:30→16:34)
[2023-09-03 16:00] VITALS: BP 158/79; TEMP 98.7; O2SAT 97
[2023-09-03] MEDS: CARVEDILOL 12.5 MG TABLET PO SCH (16:35)
[2023-09-03] MEDS: PREGABALIN 25 MG CAPSULE PO SCH (16:36)
[2023-09-03] MEDS: BLOOD SUGAR DIAGNOSTIC 1 EACH STRIP VI SCH (17:44)
[2023-09-03] MEDS: *INSULIN REGULAR(HUMULIN R)HUM 100 UNIT/ML VIAL SQ PRN (17:46)
[2023-09-03] MEDS: TEMAZEPAM 7.5 MG CAPSULE PO PRN (20:32)
[2023-09-03 20:52] VITALS: BP 118/66; TEMP 97.9; O2SAT 96
[2023-09-04] MEDS: INSULIN REGULAR, HUMAN 100 UNIT/ML 3 ML VIAL SQ PRN (06:51)
[2023-09-04 08:00] VITALS: BP 112/76; TEMP 97.9; O2SAT 97
[2023-09-04] MEDS: ATORVASTATIN 10 MG TABLET PO SCH (08:12)
[2023-09-04] MEDS: ASPIRIN 81 MG TAB.CHEW PO SCH (08:12)
[2023-09-04 08:29] LABS: ALANINE AMINOTRANSFERASE 32 U/L (12-78); ALBUMIN 3.1 g/dL (3.4-5.0); ALKALINE PHOSPHATASE 64 U/L (46-116); ASPARTATE AMINOTRANSFERASE 30 U/L (15-37); BILIRUBIN,TOTAL 1.1 mg/dL (0.2-1.0); CALCIUM, SERUM 9.9 mg/dL (8.5-10.1); CARBON DIOXIDE 23 mmol/L (21-32); CHLORIDE 107 mmol/L (98-107); CREATININE 1.6 mg/dL (0.6-1.3); GLUCOSE 194 mg/dL (74-106); POTASSIUM 3.7 mmol/L (3.5-5.1); SODIUM SERUM 140 mmol/L (136-145); TOTAL PROTEIN, SERUM 7.4 g/dL (6.4-8.2); UREA NITROGEN, BLOOD 23 mg/dL (7-18)
[2023-09-04 08:38] LABS: THYROID STIMULATING HORMONE 1.437 uIU/mL (0.358-3.74)
[2023-09-04] MEDS: KETOCONAZOLE SHAMPOO 120 ML BOTTLE TP SCH (09:00)
[2023-09-04] MEDS ORDERED: Medication Not On Formulary EA (Tadalafil (Cialis) 5 MG) PO SCH (09:00)
[2023-09-04] MEDS ORDERED: Medication Not On Formulary EA ([Kerendia] 10 MG) PO SCH (09:00)
[2023-09-04] MEDS ORDERED: Medication Not On Formulary EA (Linaclotide (Linzess) 72 MCG) PO SCH (09:00)
[2023-09-04 09:40] LABS: CREATININE 1.6 mg/dL (0.6-1.3)
[2023-09-04] MEDS: DIVALPROEX SODIUM 125 MG CAP.SPRINK PO SCH (12:50)
[2023-09-04 13:18] LABS: THYROID STIMULATING HORMONE 1.399 uIU/mL (0.358-3.74)
[2023-09-04] MEDS ORDERED: LEVOFLOXACIN (250MG) 250 MG TABLET PO SCH (14:30)
[2023-09-04 16:00] VITALS: BP 125/69; TEMP 98.6; O2SAT 97
[2023-09-04] MEDS: QUETIAPINE FUMARATE 25 MG TABLET PO SCH (20:18)
[2023-09-04 20:38] VITALS: BP 125/73; TEMP 97.9; O2SAT 95
[2023-09-05] MEDS: ACETAMINOPHEN 325 MG TABLET PO PRN (03:39)
[2023-09-05 08:00] VITALS: BP 134/76; TEMP 98.1; O2SAT 98
[2023-09-05] MEDS: DIVALPROEX SODIUM 125 MG CAP.SPRINK PO SCH (12:20)
[2023-09-05] MEDS: INSULIN GLARGINE, 100 UNIT/ML CARTRIDGE SQ SCH (13:54)
[2023-09-05 16:00] VITALS: BP 119/60; TEMP 97.9; O2SAT 98
[2023-09-05 20:20] VITALS: BP 109/63; TEMP 97.8; O2SAT 94
[2023-09-06 08:00] VITALS: BP 161/58; TEMP 97.6; O2SAT 97
[2023-09-06 13:09] LABS: FOLIC ACID 4.5 ng/mL (>3.0)
[2023-09-06 16:00] VITALS: BP 150/74; TEMP 97.7; O2SAT 97
[2023-09-06 20:00] VITALS: BP 143/66; TEMP 98.7; O2SAT 98
[2023-09-07] MEDS: MAGNESIUM HYDROXIDE 30 ML UDC PO PRN (07:03)
[2023-09-07 08:00] VITALS: BP 157/106; TEMP 97.7; O2SAT 98
[2023-09-07] MEDS: LISINOPRIL (10MG) 10 MG TABLET PO SCH (13:55)
[2023-09-07 16:00] VITALS: BP 137/60; TEMP 97.8; O2SAT 98
[2023-09-07] MEDS: TRAMADOL HCL 50 MG TABLET PO PRN (21:42)
[2023-09-08 08:00] VITALS: BP 138/67; TEMP 98.1; O2SAT 98
[2023-09-08 16:00] VITALS: BP 128/73; TEMP 98.9; O2SAT 100
[2023-09-08 20:00] VITALS: BP 129/99; TEMP 98.1; O2SAT 95
[2023-09-09 08:00] VITALS: BP 148/77; TEMP 98; O2SAT 97
[2023-09-09 16:00] VITALS: BP 119/64; TEMP 97.9; O2SAT 95
[2023-09-09 20:19] VITALS: BP 134/70; TEMP 98; O2SAT 95
[2023-09-10 08:00] VITALS: BP 115/87; TEMP 98.1; O2SAT 96
[2023-09-10 16:00] VITALS: BP 109/76; TEMP 98.1; O2SAT 99
[2023-09-10 20:25] VITALS: BP 115/86; TEMP 98.5; O2SAT 99
[2023-09-11 08:00] VITALS: BP 155/88; TEMP 97.9; O2SAT 97
[2023-09-11 08:33] VITALS: BP 155/88
== END 2023-09-11 12:00 | disposition home health service (06) | DRG 885 ==
LOC: ER 23:34 → GPS 09-03 09:59
PROVIDERS: ADMIT Psychiatry & Neurology Psychosomatic Medicine; ATTEND Student in an Organized Health Care Education/Training Program
DX: F31.9 Bipolar disorder, unspecified (principal); F01.53 Vascular dementia, unspecified severity, with mood disturbance; N18.9 Chronic kidney disease, unspecified; N17.0 Acute kidney failure with tubular necrosis; E11.65 Type 2 diabetes mellitus with hyperglycemia; G92.9 Unspecified toxic encephalopathy; E87.20 Acidosis, unspecified; F39 Unspecified mood [affective] disorder; F29 Unspecified psychosis not due to a substance or known physiological condition; I25.10 Atherosclerotic heart disease of native coronary artery without angina pectoris; I12.9 Hypertensive chronic kidney disease with stage 1 through stage 4 chronic kidney disease, or unspecified chronic kidney disease; E78.5 Hyperlipidemia, unspecified; Z86.73 Personal history of transient ischemic attack (TIA), and cerebral infarction without residual deficits; Z88.0 Allergy status to penicillin; Z95.1 Presence of aortocoronary bypass graft; Z73.6 Limitation of activities due to disability; F41.9 Anxiety disorder, unspecified; V49.9XXA Car occupant (driver) (passenger) injured in unspecified traffic accident, initial encounter; Y93.9 Activity, unspecified; Y92.89 Other specified places as the place of occurrence of the external cause; R82.998 Other abnormal findings in urine; E11.22 Type 2 diabetes mellitus with diabetic chronic kidney disease; Z79.82 Long term (current) use of aspirin; Z79.4 Long term (current) use of insulin
CPT/HCPCS: 36415; 70450-TC; 71045-TC; 73030-TC; 73630-TC; 76770-TC; 80053-TC; 80061-TC; 80164-TC; 82140-TC; 82248-TC; 82565-TC; 82607-TC; 82962-TC; 83605-TC; 83735-TC; 83880; 83921; 84439-TC; 84443-TC; 84484-TC; 85025-TC; 87040-TC; 90715; 97110-TC; 97112-TC; 97116-TC; 97530-TC; A4223; G0480; J1200; J1815; J2060; J3370; J3490; J7030; J7060